=== PATIENT | female | born 1970 | race Caucasian/White ===

== ENCOUNTER 2020-04-03 16:22 | Emergency (ER) | payer BC ==
[~2020-04-03] VITALS: Ht 160 cm; Wt 73.9 kg
--- OUTSIDE RECORDS SUMMARY | 2020-04-03 16:53 | XMS REPORT | Clinical Summary ---
Author Author [facility] Organization [facility] Address Unknown Phone Unavailable Care Team Providers Care Automotive Sales Representative Name Role Phone Lior Vyas MD PCP Allergies Comments Active Allergy Reactions Severity Noted Date No Known Drug Allergies 04/28/2017 Medications End Date Status Medication Sig Dispensed Refills Start Date Active zolpidem (AMBIEN) 10 mg Take 5 mg by 0 tablet mouth 7 nightly. Active LORAZepam (ATIVAN) 0.5 MG Take 0.5 mg 0 09/22 tablet by mouth 2 7 (two) times a day as needed for anxiety. Active ibuprofen (ADVIL,MOTRIN) Take 200 mg 0 200 MG tablet by mouth as needed for mild pain. Active levothyroxine (SYNTHROID) 0 50 mcg tablet 0 Active omeprazole (PriLOSEC) 20 TK 1 C PO QD 0 11/07 MG capsule FOR REFLUX 0 04/30/2020 Active nitrofurantoin, Take 1 30 capsule 5 macrocrystal-monohydrate, capsule (100 0 (MACROBID) 100 MG capsule mg total) by mouth 2 (two) times a day for 90 days. Begin at onset of UTI for 3 days 04/10/2020 Active amoxicillin-pot Take 1 tablet 14 tablet 0 04/03/20 2 clavulanate (Augmentin) (500 mg 0 500-125 mg per tablet total) by mouth 2 (two) times a day for 7 days. 01/31/2020 Discontinued (Patient Report ed) thyroid, pork, (ARMOUR Take 60 mg by 0 THYROID) 60 mg tablet mouth every morning. 11/02/2019 ciprofloxacin (CIPRO) 500 TAKE 1 TABLET 14 tablet 1 MG tablet BY MOUTH 0 TWICE DAILY 12/06/2019 ciprofloxacin HCl (CIPRO) Take 1 tablet 14 tablet 0 250 MG tablet (250 mg 0 total) by mouth 2 (two) times a day for 7 days. 02/05/2020 Discontinued (Error) ciprofloxacin HCl (CIPRO) Take 1 tablet 14 tablet 0 250 MG tablet (250 mg 0 total) by mouth 2 (two) times a day for 7 days. 02/12/2020 ciprofloxacin (CIPRO) 500 Take 1 tablet 14 tablet 0 MG tablet (500 mg 0 total) by mouth 2 (two) times a day for 7 days. 03/01/2020 ciprofloxacin (CIPRO) 250 Take 1 tablet 14 tablet 0 MG tablet (250 mg 0 total) by mouth 2 (two) times a day for 7 days. Active Problems Problem Noted Date Urinary tract infection without hematuria 01/31/2020 History of recurrent UTIs 01/31/2020 Postmenopausal atrophic vaginitis 01/31/2020 Foul smelling urine 01/31/2020 Feeling of incomplete bladder emptying 01/31/2020 Vertigo 06/06/2018 Concussion without loss of consciousness 04/22/2018 Cervicalgia 04/22/2018 Nausea 04/22/2018 Acute post-traumatic headache 04/22/2018 Blurred vision 04/22/2018 Chest pain 12/21/2016 Encounters Care Team Description Date Type Specialty Amish Shaw MD 04/03/2020 Telephone Urology Amish Shaw MD 03/19/2020 Telephone Urology Amish Shaw MD 02/23/2020 Orders Only Urology Natalia Tejeda MA 02/05/2020 Orders Only Urology Natalia Tejeda MA 02/05/2020 Orders Only Urology Amish Shaw MD Urinary tract infection without hematuri a, site unspecified (Primary Dx); History of recurrent UTIs; Postmenopausal atrophic vaginitis; Foul smelling urine; Feeling of incomplete bladder emptying 01/31/2020 Office Visit Urology 01/31/2020 Travel Amish Shaw MD 01/18/2020 Telephone Urology Amish Shaw MD 11/29/2019 Orders Only Urology Amish Shaw MD 10/25/2019 Refill Urology Amish Shaw MD 07/31/2019 Telephone Urology after 04/03/2019 Surgical History Surgery Date Site/Laterality Comments AUGMENTATION, BREAST, WITH PROSTHETIC IMPLANT ANKLE SURGERY ABDOMINAL SURGERY 09/21/2014 - thaddeus Lewis ow 10/21/2014 SECTION 05/24/2004 - 05/23/2005 SECTION 05/24/2006 - 05/23/2007 CHOLECYSTECTOMY 08/23/2007 - 09/21/2007 ENDOMETRIAL ABLATION W/ 12/04/2008 path prolifera tive endometrium NEM NOVASURE , INDUCED, BY 04/23/2003 DILATION AND EVACUATION - 05/23/2003 THROAT SURGERY 07/16/[address] Luque TONSILLECTOMY 05/24/1979 - 05/23/1980 TUBAL LIGATION 10/20/2006 WRIST SURGERY 02/21/2003 Left cyst removed - 03/23/2003 HYSTERECTOMY, ABDOMINAL, 11/11/2018 Uterus/N/A Proce dure: ROBOT-ASSISTED LAPAROSCOPIC TOTAL LAPAROSCOPIC, HYSTERECTOMY W/ BILATERAL S ALPINGECTOMY; Surgeon: ROBOT-Bi Millan ms, ; Location: [facility]; Service: Gynecology; Latera lity: N/A; HYSTERECTOMY 11/11/2018 Dr. De Dios Medical History Medical History Date Comments Hypothyroid Bladder retention of urine age 36 Gardnerella vaginalis infection 05/02/2013 vag pa vj Hypothyroidism 03/2011 Dr Lucero Urinary tract infection 11/05/2008 E.Coli Ureaplasma 07/05/2014 vag panel HPV (human papilloma virus) infection 08/2010 throat Anxiety GERD (gastroesophageal reflux disease) Family History Medical History Relation Name Comments Stroke Father Breast cancer Maternal great grandmother Grandmother Hypertension Mother Thyroid disease Mother Relation Name Status Comments Father Alive Maternal Grandfather Maternal Grandmother Mother Alive Paternal Grandfather Paternal Grandmother Social History Date Tobacco Use Types Packs/Day Years Used Quit: 12/14/2016 Former Smoker Cigarettes 0.5 30 Smokeless Tobacco: Never Used Drinks/Week oz/Week Comments Alcohol Use 2 Standard drinks or equivalent 2.0 social Yes Sex Assigned at Date Recorded Not on file Obstetrics History Term Pre Abrt (TAB) (SAB) (Ect) Mult Lvng Comments Grav Para 4 1 1 0 1 0 0 5 6 5 Date GA Total Labor Labor/2nd/3rd Weight Sex Delivery Anes PTL Carol A1 A5 Name Clin Outcome 10/17/1990 40w0d 7 lb 9 oz M Vag-Spont Epidural N Living Isak Term Delivery Location: [facility] 08/04/1994 40w0d 7 lb 11 oz M Vag-Spont Epidural N Living Cabrera Term Delivery Location: [facility] 01/16/2003 40w0d 6 lb 15 oz F Vag-Spont Epidural Living Trish Term Delivery Location: Counts include [facility] beds at the [facility] 04/23/2003 SAB 05/23/2005 26w0d 2 lb 5 oz M CS-Unspec Epidural Y Living Santiago Delivery Location: [facility] 10/20/2006 38w0d 7 lb 1 oz M CS-Unspec Epidural N Living Nick Tam Term Delivery Location: [facility] Last Filed Vital Signs Not on file Plan of Treatment Health Maintenance Due Date Last Done Comments CERVICAL CANCER SCREENING 03/26/2019 03/26/2016 INFLUENZA VACCINE 12/23/2019 Procedures Comments Procedure Name Priority Date/Time Associated Diag nosis URINALYSIS, COMPLETE, Routine 01/31/2020 Urinary tract infection WITH REFLEX TO CULTURE 9:48 AM CDT without hematu jacqueline, site unspecified URINE CULTURE Routine 01/31/2020 9:48 AM CDT after 04/03/2019 Results * URINALYSIS, COMPLETE, WITH REFLEX TO CULTURE (01/31/2020 9:48 AM CDT) Color, UA YELLOW YELLOW [facility] Appearance CLEAR CLEAR [facility] Specific 1.021 1.001 - 1.035 [facility] gravity, urine [facility]AGNOST[facility] [place] [facility] pH, urine < OR = 5.0 5.0 - 8.0 [facility] Glucose, urine NEGATIVE NEGATIVE [facility] Bilirubin, UA NEGATIVE NEGATIVE [facility] Ketones, UA NEGATIVE NEGATIVE [facility] Occult blood, TRACE (A) NEGATIVE [facility] urine [facility] Protein, UA NEGATIVE NEGATIVE [facility] Nitrite, UA NEGATIVE NEGATIVE [facility] Leukocyte TRACE (A) NEGATIVE [facility] esterase, [facility] WBC, UA 6-10 (A) < OR = 5 /HPF [facility] RBC, UA NONE SEEN < OR = 2 /HPF [facility] Squamous NONE SEEN < OR = 5 /HPF [facility] epithelial DIAGNOSTICS cells, [facility] Bacteria, UA MANY (A) NONE SEEN /HPF [facility] Hyaline casts, NONE SEEN NONE SEEN /LPF [facility] UA [facility] Reflex CULTURE INDICATED - RESULTS TO [facility] Specimen Urine Resulting Agency Comment Performing Organization Information: Site ID: [id number] Name: [facility] Address: [address] [place] [id number] Director: Santiago Cota Performing Organization Address [facility] Code P nicolle Number [facility] [address] [phone] * Urine culture (01/31/2020 9:48 AM CDT) Urine culture (A) [facility] Comment: DIAGNOSTICS CULTURE, URINE, ROUTINE [facility] Micro Number: [id number] Test Status: Final Specimen Source: URINE Specimen Quality: Adequate Result: Greater than 100,000 CFU/mL of Escherichia coli COMMENT: Additional organism(s) less than 10,000 CFU/mL isolated. These organisms, commonly found on external and internal genitalia, are considered colonizers. No further testing performed. E.coli INT VALORIE AMOX/CLAVULANATE S 4 AMPICILLIN S 8 AMP/SULBACTAM S 4 CEFAZOLIN NR <=4 2 CEFEPIME S <=1 CEFTRIAXONE S <=1 CIPROFLOXACIN S <=0.25 GENTAMICIN S <=1 LEVOFLOXACIN I 1 NITROFURANTOIN S 32 TOBRAMYCIN S <=1 S=Susceptible I=Intermediate R=Resistant * = Not Tested NR = Not Reported NN = See Therapy Comments THERAPY COMMENTS Note 1: For infections other than uncomplicated UTI caused by E. coli, K. pneumoniae or P. mirabilis: Cefazolin is resistant if VALORIE > or = 8 mcg/mL. (Distinguishing susceptible versus intermediate for isolates with VALORIE < or = 4 mcg/mL requires additional testing.) Note 2: For uncomplicated UTI caused by E. coli, K. pneumoniae or P. mirabilis: Cefazolin is susceptible if VALORIE <32 mcg/mL and predicts susceptible to the oral agents cefaclor, cefdinir, cefpodoxime, cefprozil, cefuroxime, cephalexin and loracarbef. Specimen Resulting Agency Comment Performing Organization Information: Site ID: RGA Name: [facility] Address: [address] [place] [id number] Director: Santiago Cota Performing Organization Address City/[facility]/ZIP Code P nicolle Number [facility] [address] [phone] after 04/03/2019 Insurance Type Payer Benefit Subscriber ID Effective Phone Address Plan / Dates Group PPO BAL LICEA [id number] BLUE CROSS resent Advance Directives For more information, please contact: [phone] Patient Inspector [employer] Explanation Type Date Recorded Advance Directives, 11/10/2018 1:59 PM Living Will and Medical Power of Rotor Balancer
--- OUTSIDE RECORDS SUMMARY | 2020-04-03 16:53 | XMS REPORT | Continuity of Care Document ---
Author Author [facility] Organization [facility] Address [address] [place] [address] Phone Unavailable Care Team Providers Care Yarn Finisher Name Role Phone Mi Vyas MD PCP Amish Shaw MD Attphys Natalia Tejeda MA Attphys Unavailable Payers Payer Name Policy Type Policy Number Effective Date Expiration Date S rocío BCBSANTHEM BLUE [id number] 2018-PresentPPO [id number] 2018 00:00:00 Ari Pink Problems Condition Name Condition Details Condition Category Status Onset Date Resolution Date Last Treatment Date Treating Clinician Comments Source Urinary tract infection without hematuria Urinary trac t infection without hematuria Disease Active 2020-01-31 00:00:00 Ole Pink History of recurrent UTIs History of recurrent UTIs Disease Ac tive 2020-01-31 00:00:[address] Postmenopausal atrophic vaginitis Postmenopausal atrophic vagini tis Disease Active 2020-01-31 00:00:00 Tarah Pink Foul smelling urine Foul smelling urine Disease Active 2020-01-31 00:00 :00 Ari Pink Feeling of incomplete bladder emptying Feeling of incomplete bladder emptying Disease Active 2020-01-31 00:00:00 Ari Pink Vertigo Vertigo Disease Active 2018-06-06 00:00:00 Ari Pink Concussion without loss of consciousness Concussion wi thout loss of consciousness Disease Active 2018-04-22 00:00:00 Ari Pink Cervicalgia Cervicalgia Disease Active 2018-04-22 00:00:00 Ari Pink Nausea Nausea Disease Active 2018-04-22 00:00:00 Ari Pink Acute post-traumatic headache Acute post-traumatic headache Disease Active 2018-04-22 00:00:00 Ari Pink Blurred vision Blurred vision Disease Active 2018-04-22 00:00:00 Ari Pink Chest pain Chest pain Disease Active 2016-12-21 00:00:00 Ari Pink Allergies, Adverse Reactions, Alerts Allergy Name Allergy Type Status Severity Reaction(s) Onset Date Inacti ve Date Treating Clinician Comments Source No Known Allergies DA Active U 2010-09-16 00:00:00 [facility] Family History Family Member Diagnosis Comments Start Date Stop Date Source Natural father Stroke [facility] Maternal grandmother Breast cancer H dorina Pink Natural mother Hypertension Ari Pink Natural mother Thyroid disease [place] Social History Social Habit Start Date Stop Date Quantity Comments Source Sex Assigned At Jaclyn zoraidaanne Pink Cigarettes smoked current (pack per day) - Reported 00:00:00 2020-01-31 00:00:00 Ari Pink Cigarette pack-years 2020-01-31 00:00:00 2020-01-31 00:00:00 Ari Pink Tobacco use and exposure 2020-01-31 00:00:00 2020-01-31 00:00:00 Cristy garcia used Ari Pink Alcohol intake 2020-01-31 00:00:00 2020-01-31 00:00:00 Current drinker of alcohol (finding) Ari Pink Alcohol Comment 2018-11-10 00:00:00 2018-11-10 00:00:00 social Ari Pink History of tobacco use 2016-12-14 00:00:00 Current smoker Ari Pink Smoking Status Start Date Stop Date Source Former smoker 2020-01-31 00:00:00 2020-01-31 00:00:00 Ari Pink Medications Ordered Medication Name Filled Medication Name Start Date Stop Da te Current Medication? Ordering Clinician Indication Dosage Frequency Signature (SIG) Comments Components Source amoxicillin-pot clavulanate (Augmentin) 500-125 mg per table t 2020-04-03 00:00:00 2020-04-10 23:59:00 Yes 500mg Q.5D Take 1 tablet (500 mg total) by mouth 2 (two) times a day for 7 days. Ole Pink ciprofloxacin (CIPRO) 250 MG tablet 2020-02-23 00:00:0 0 2020-03-01 23:59:00 No 250mg Q.5D Take 1 tablet ( 250 mg total) by mouth 2 (two) times a day for 7 days. Ari Pink ciprofloxacin (CIPRO) 500 MG tablet 2020-02-05 00:00:0 0 2020-02-12 23:59:00 No 500mg Q.5D Take 1 tablet ( 500 mg total) by mouth 2 (two) times a day for 7 days. Ari Pink ciprofloxacin HCl (CIPRO) 250 MG tablet 00:00:00 2020-02-05 00:00:00 No 250mg Q.5D Take 1 tablet (250 mg total) by mouth 2 (two) times a day for 7 days. Ari Pink thyroid, pork, (ARMOUR THYROID) 60 mg tablet 09:46:46 2020-01-31 00:00:00 No 60mg QD Take 60 mg by mouth every morni ng. Ari Pink nitrofurantoin, macrocrystal-monohydrate, (MACROBID) 100 MG capsule 2020-01-31 00:00:00 2020-04-30 23:59:00 Yes 100mg Q.5D Take 1 capsule (100 mg total) by mouth 2 (two) times a day for 90 days. Begin at onset of UTI for 3 days Ari Pink levothyroxine (SYNTHROID) 50 mcg tablet 2020-01-18 00:00:00 Ye s Ari Pink ciprofloxacin HCl (CIPRO) 250 MG tablet 00:00:00 2019-12-06 23:59:00 No 250mg Q.5D Take 1 tablet (250 mg total) by mouth 2 (two) times a day for 7 days. Ari Pink omeprazole (PriLOSEC) 20 MG capsule 2019-11-08 00:00:00 Yes TK 1 C PO QD FOR REFLUX Ari Pink ciprofloxacin (CIPRO) 500 MG tablet 2019-10-26 00:00:0 0 2019-11-02 23:59:00 No TAKE 1 TABLET BY MOUTH TWICE DAILY Ari Pink ibuprofen (ADVIL,MOTRIN) 200 MG tablet 2019-01-27 09:16:12 Yes 200mg Take 200 mg by mouth as needed for mild pain. Ari Pink zolpidem (AMBIEN) 10 mg tablet 2016-11-19 00:00:00 Yes 5mg QD Take 5 mg by mouth nightly. Ari Pink LORAZepam (ATIVAN) 0.5 MG tablet 2016-10-16 00:00:00 Yes .5mg Q.5D Take 0.5 mg by mouth 2 (two) times a day as needed for anxiety. Ari Pink Procedures Procedure Date / Time Performed Performing Clinician [facility] e URINE CULTURE 2020-01-31 09:48:00 Amish Shaw ethodist URINALYSIS, COMPLETE, WITH REFLEX TO CULTURE 2020-01-31 09:4 8:00 Amish Shaw Plan of Care Planned Activity Planned Date Details Comments Source Future Scheduled Test 2019-12-23 00:00:00 INFLUENZA VACCINE [code = INFLUENZA VACCINE] Ari Pink Future Scheduled Test 2019-03-26 00:00:00 Screening for kyree gnant neoplasm of cervix (procedure) [code = 545753178] Ari Love t Encounters Start Date/Time End Date/Time Encounter Type Admission Type [facility] Care Department Encounter ID Source 2020-01-31 00:00:00 2020-01-31 00:00:00 Outpatient [facility] [id number] Ari Pink Results Test Description Test Time Test Comments Results Result Comments Source Urine culture 2020-02-03 11:36:00 Test Item Urine culture (test code = 630-4) A CULTURE, URINE, ROUTINE Micro Number: [id number] Test Status: Final Specimen Source: URINE Specimen [...] I 1 NITROFURANTOIN S 32 TOBRAMYCIN S <=1S=Susceptible I=Intermediate R=Resistant * = Not TestedNR = Not Reported NN = See Therapy CommentsTHERAPY COMMENTS Note 1: For infections other than [...] cefdinir, cefpodoxime, cefprozil, cefuroxime, cephalexin and loracarbef. MACKENZIE (test code = MACKENZIE) Performing Organization Info rmation: Site ID: RGA Name: [email or web address] Address: [address] [place] [phone] Director: Santiago Cota Lab Interpretation (test code = 36684-9) Abnormal [facility], WITH REFLEX TO [id number] 11:36:00 * Test Item Value Reference Range Interpretation Comments Color, UA (test code = 5778-6) YELLOW YELLOW Appearance (test code = 5767-9) CLEAR CLEAR Specific gravity, urine (test code = 5811-5) 1.021 1.001-1.0 35 pH, urine (test code = 5803-2) < OR = 5.0 5.0-8.0 Glucose, urine (test code = 26187-2) NEGATIVE NEGATIVE Bilirubin, UA (test code = 5770-3) NEGATIVE NEGATIVE Ketones, UA (test code = 2514-8) NEGATIVE NEGATIVE Occult blood, urine (test code = 5794-3) TRACE NEGATIVE A Protein, UA (test code = 46239-7) NEGATIVE NEGATIVE Nitrite, UA (test code = 5802-4) NEGATIVE NEGATIVE Leukocyte esterase, UA (test code = 5799-2) TRACE NEGATIVE A WBC, UA (test code = 5821-4) 6-10 < OR = 5 /HPF A RBC, UA (test code = 26081-8) NONE SEEN < OR = 2 /HPF Squamous epithelial cells, UA (test code = 27059-5) NONE SEEN < OR = 5 /HPF Bacteria, UA (test code = 5769-5) MANY NONE SEEN /HPF A Hyaline casts, UA (test code = 5796-8) NONE SEEN NONE SEEN /LPF Reflex (test code = 630-4) CULTURE INDICATED - RESULTS TO FOLLOW RAC (test code = RAC) Performing Organization Info rmation: Site ID: RGA Name: [facility] Address: [address] [place] [phone] Director: Santiago Cota Lab Interpretation (test code = 02617-1) Abnormal Ari Pink
--- NOTE | 2020-04-03 16:59 | Emergency Department Note ---
History of Present Illnes History of Present Illness Chief Complaint: Respiratory History of Present Illness This is a 50 year old female Chief Complaint Comment PATIENT IN FROM HOME WITH COMPLAINTS OF SHORTNESS OF BREATH X 1 WEEK; STATES WAS SEEN BY PCP AND HAD A NEGATIVE COVID TEST, BUT STILL FEELS SHORT OF BREATH. PATIENT TACHYPNEIC, O2 SATS 100% ON ROOM AIR, APPEARS ANXIOUS. Historian: Patient Arrival Mode: Car Past Medical/Family History Physician Review I have reviewed the patient's past medical and family history. Any updates have been documented here. Past Medical History Recent Fever: No Clinical Suspicion of Infectio: No New/Unexplained Change in Ment: No Past Medical History: Hypothyroidism, UTI's Past Surgical History: Cholecysctectomy, Hysterectomy Other Surgery: BREAST AUGMENTATION TUMMY TUCK Social History Physically hurt or threatened: No Physical Exam Related Data Allergies: Coded Allergies: No Known Allergies (Unverified , 04/03/20) Triage Vital Signs Vital Signs Date Time Temp Pulse Resp B/P (MAP) Pulse Ox O2 Delivery O2 Flow Rate FiO2 04/03/20 16:32 97.4 82 26 133/88 100 Room Air Physical Exam CONSTITUTIONAL HENT EYES NECK PULMONARY CARDIOVASCULAR GASTROINTESTINAL GENITOURINARY SKIN MUSCULOSKELETAL NEUROLOGICAL PSYCHOLOGICAL Assessment & Plan Medical Decision Making MDM 50-year-old female with no significant past medical history presents to emergency department for shortness of breath 2 weeks. She recently had a COVID screening which was negative and also had a chest x-ray which does not have the results of. No history of ACS. Will perform cardiopulmonary workup with d-dimer and chest x-ray as well as lab work. Handed off to Dr. Marquez @ 1800 pending labs/imaging Reassessment Reassessment time: 18:03 Reassessment Well appearing, NAD Assessment & Plan Final Impression: (1) Shortness of breath Last Vital Signs Date Time Temp Pulse Resp B/P (MAP) Pulse Ox O2 Delivery O2 Flow Rate FiO2 04/03/20 16:32 97.4 82 26 133/88 100 Room Air FELISA ESPITIA MD Apr 03, 2020 16:59
[2020-04-03 18:13] LABS: BASOPHILS # (AUTO) 0.1 (0.0-0.1); BASOPHILS % 0.8 % (0.0-1.0); EOSINOPHILS % 0.6 % (0.0-6.0); HEMATOCRIT 38.2 % (34.2-44.1); HEMOGLOBIN 12.8 g/dL (12.0-16.0); LYMPHOCYTES # (AUTO) 1.6 (1.0-3.2); MEAN CORPUSCULAR HEMOGLOBIN 30.5 pg (28-32); MEAN CORPUSCULAR HGB CONC 33.5 g/dL (31-35); MONOCYTES # (AUTO) 0.6 (0.2-0.8); MONOCYTES % 8.5 % (4.4-11.3); NEUTROPHILS # (AUTO) 4.3 (2.1-6.9); NEUTROPHILS % 64.6 % (38.7-80.0); PLATELET COUNT 224 x10e3/uL (140-360); RED CELL DISTRIBUTION WIDTH 12.6 % (11.7-14.4)
[2020-04-03 18:18] LABS: ALANINE AMINOTRANSFERASE 37 IU/L (0-55); ALBUMIN 4.1 g/dL (3.5-5.0); ALBUMIN/GLOBULIN RATIO 1.5 (0.8-2.0); ALKALINE PHOSPHATASE 51 IU/L (40-150); ANION GAP 13.7 mmol/L (8-16); BLOOD UREA NITROGEN 16 mg/dL (7-26); BUN/CREATININE RATIO 19 (6-25); CALCIUM 8.9 mg/dL (8.4-10.2); CARBON DIOXIDE 22 mmol/L (22-29); CHLORIDE 107 mmol/L (98-107); CREATININE, SERUM 0.84 mg/dL (0.57-1.11); EST GLOMERULAR FILTRATION RATE > 60 ML/MIN (60-); GLUCOSE 84 mg/dL (74-118); POTASSIUM 3.7 mmol/L (3.5-5.1); SODIUM 139 mmol/L (136-145)
--- NOTE | 2020-04-03 20:44 | Diagnostic Imaging Report ---
EXAMINATION: CHEST SINGLE (PORTABLE) INDICATION: Chest pain. Shortness of breath. Fatigue. COMPARISON: None FINDINGS: TUBES and LINES: None. LUNGS: Lungs are well inflated. Mild bilateral perihilar, peribronchial thickening. There is no evidence of pneumonia or pulmonary edema. PLEURA: No pleural effusion or pneumothorax. HEART AND MEDIASTINUM: The cardiomediastinal silhouette is unremarkable. BONES AND SOFT TISSUES: No acute osseous lesion. Soft tissues are unremarkable. UPPER ABDOMEN: No free air under the diaphragm. IMPRESSION: Mild viral infection versus reactive airway disease. No consolidation. Signed by: Dr. Jessi Harper M.D. on 04/03/2020 8:41 PM
[2020-04-03] MEDS ORDERED: ALBUTEROL SULF 0.083% NEB SOLN 3 ML NEB NEB STA (20:52)
[2020-04-03] MEDS ORDERED: PREDNISONE20 MG PO (21:00)
[2020-04-03] MEDS ORDERED: TYLENOL # 31 EA PO (21:00)
[2020-04-03] MEDS ORDERED: TESSALON PERLE100 MG PO (21:00)
[2020-04-03] MEDS ORDERED: ALBUTEROL SULFATE HFA 8GM INHALATION AEROSOL INH ONE (21:02)
== END 2020-04-03 21:08 | disposition home or self-care (01) ==
LOC: ER 16:51
DX: R06.02 Shortness of breath (principal); E03.9 Hypothyroidism, unspecified
CPT/HCPCS: 36415; 71045; 80053; 84484; 85025; 85379; 93005; 99283